=== PATIENT | male | born 1995 | race African-American/Black ===

== ENCOUNTER 2017-06-06 16:07 | Emergency (ER) | payer OTHER ==
[~2017-06-06] VITALS: Ht 167.6 cm; Wt 57.0 kg
[2017-06-06 16:15] VITALS: BP 129/82
[2017-06-06] MEDS ORDERED: DIPH,PERTUSS(ACELL),TET VAC/PF 0.5 ML IM-VACC ONE ×2 (16:30→16:32)
[2017-06-06] MEDS ORDERED: ACETAMINOPHEN 500 MG TABLET ONE (16:49)
[2017-06-06] MEDS ORDERED: ACETAMINOPHEN 500 MG TABLET PO ONE (18:00)
== END 2017-06-06 17:08 | disposition home or self-care (01) ==
LOC: ED 17:02
DX: S00.93XA Contusion of unspecified part of head, initial encounter (principal); Y04.2XXA Assault by strike against or bumped into by another person, initial encounter; Y93.89 Activity, other specified; Y92.488 Other paved roadways as the place of occurrence of the external cause; Y99.8 Other external cause status
CPT/HCPCS: 70450; 90715; 96372